=== PATIENT | male | born 1970 | race Two or more races ===

== ENCOUNTER 2019-02-02 06:33 | Emergency (ER) | payer MEDICAID ==
[~2019-02-02] VITALS: Ht 175.3 cm; Wt 70.3 kg
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
[2019-02-02] MEDS ORDERED: MORPHINE SULFATE INJ 2 MG/ML DISP.SYRIN ONE (06:46)
[2019-02-02] MEDS ORDERED: ONDANSETRON HCL/PF 4 MG/2 ML VIAL ONE (06:46)
[2019-02-02] MEDS ORDERED: TDAP [DIPH/PERTUSSIS/TET] 0.5 ML VIAL IM ONE ×2 (07:00→07:04)
[2019-02-02] MEDS ORDERED: ONDANSETRON HCL/PF 4 MG/2 ML VIAL IVP ONE (07:00)
[2019-02-02] MEDS ORDERED: MORPHINE SULFATE INJ 2 MG/ML DISP.SYRIN IV ONE ×3 (07:00→08:30)
[2019-02-02 07:08] LABS: BASOPHILS # (AUTO) 0.1 /CMM (0.0-0.2); BASOPHILS % (AUTO) 1.1 % (0.0-2.0); EOSINOPHILS % (AUTO) 3.6 % (0.0-6.0); HEMATOCRIT 48 % (39-51); HEMOGLOBIN 16.2 g/dL (13.5-17.5); LYMPHOCYTES % (AUTO) 24.8 % (20.0-44.0); MEAN CORPUSCULAR HGB CONC 34 g/dl (31.0-36.0); MEAN CORPUSCULAR VOLUME 91 fL (80-96); MONOCYTES # (AUTO) 0.8 /CMM (0.1-1.30); MONOCYTES % (AUTO) 6.4 % (2.0-12.0); NEUTROPHILS # (AUTO) 7.8 /CMM (1.8-8.9); NEUTROPHILS % (AUTO) 64.1 % (43.0-81.0); PLATELET COUNT (AUTO) 299 /CMM (150-450); RED BLOOD CELL COUNT(AUTO) 5.29 MIL/uL (4.5-6.0); WHITE BLOOD COUNT (AUTO) 12.2 K/uL (4.3-11.0)
--- NOTE | 2019-02-02 07:10 | NUR ---
XRAY AT BEDSIDE
--- NOTE | 2019-02-02 07:17 | NUR ---
REPORT GIVEN TO DAYAMI PINEDA FOR [facility]
[2019-02-02] MEDS ORDERED: MORPHINE SULFATE INJ 4 MG/ML DISP.SYRIN ONE ×2 (07:21→08:17)
--- NOTE | 2019-02-02 07:29 | NUR ---
PATIENT RESTING. SCREAMING IN PAIN, MEDICATION ADMINISTERED.
[2019-02-02] MEDS ORDERED: IV NS 0.9% 250 ML IV ONE (07:41)
[2019-02-02] MEDS ORDERED: CT SWABBABLE VALVE TRANS SET 1 EA INFUS.SET MC ONE (07:42)
[2019-02-02] MEDS ORDERED: IOHEXOL-300 100 ML VIAL IV ONE (07:42)
--- NOTE | 2019-02-02 07:49 | NUR ---
[facility]ED [facility]. WILL CALL BACK WHEN THEY GET A HOLD OF THE DOCTOR.
[2019-02-02 08:15] LABS: ALBUMIN 4.6 g/dL (3.4-5.0); BILIRUBIN,DIRECT 0.1 mg/dL (0.0-0.2); BILIRUBIN,TOTAL 0.4 mg/dL (0.2-1.0); CALCIUM, SERUM 8.9 mg/dL (8.5-10.1); CREATININE 1.2 mg/dL (0.6-1.3); POTASSIUM 3.5 mmol/L (3.5-5.1); TOTAL PROTEIN, SERUM 8.4 g/dL (6.4-8.2)
--- NOTE | 2019-02-02 08:20 | NUR ---
PT WHEELED TO CT SCAN VIA [employer].
[2019-02-02] MEDS ORDERED: PROPOFOL 20 ML IV ONE (08:26)
--- NOTE | 2019-02-02 08:38 | NUR ---
PATIENT TAKEN BACK TO THE ROOM. NO DISTRESS NOTED. VITALS STABLE. ON O2 AT 2LPM VIA NC WITH SPO2 OF 98%.
[2019-02-02] MEDS ORDERED: KETAMINE HCL (500MG/10ML) 50 MG/ML VIAL ONE (08:41)
--- NOTE | 2019-02-02 09:25 | NUR ---
PD AT BEDSIDE, INTERVIEWING THE PATIENT
--- NOTE | 2019-02-02 09:33 | NUR ---
REPORT GIVEN TO ROHITH PINEDA AT [facility].
[2019-02-02] MEDS ORDERED: NALOXONE PREFILLED SYRINGE 2 MG/2 ML SYRINGE ONE (09:42)
--- NOTE | 2019-02-02 09:57 | NUR ---
[employer] ENGINE[employer] AT BEDSIDE FOR XRAY.
[2019-02-02] MEDS ORDERED: PROPOFOL 200 MG/20 ML VIAL IV ONE (10:00)
[2019-02-02] MEDS ORDERED: KETAMINE HCL(200MG/20ML) 10 MG/ML VIAL IV ONE (10:00)
[2019-02-02] MEDS ORDERED: NALOXONE HCL 0.4 MG/ML AMPUL IV ONE (10:00)
--- NOTE | 2019-02-02 10:03 | NUR ---
PATIENT COMPLETED RIGHT HIP REDUCTION PERFORMED BY DR. LEWIS. VITALS STABLE. PATIENT A/OX3, VERBALLY RESPONSIVE, BREATHING EVEN AND UNLABORED, NO SOB NOTED. WILL MONITOR.
--- NOTE | 2019-02-02 10:24 | NUR ---
OFFICER KARINA AT BEDSIDE, WAITING FOR PATIENT TO DECIDE IF HE AGREES TO GET HIS BLOOD DRAWN FOR SERUM ALCOHOL TO BE PROCESSED.
--- NOTE | 2019-02-02 10:40 | NUR ---
PATIENT ALERT AND ORIENTED X4, AWARE OF SITUATION, GAVE VERBAL CONSENT TO HAVE BLOOD TO BE DRAWN FOR OFFICER KARINA. WITNESSED BY 2 NURSES. MITUL PINEDA AND JOSE DYSON RN. MITUL PINEDA JOSIAS BLOOD AND GAVE IT TO OFFICER KARINA.
[2019-02-02 10:52] VITALS: BP 132/78
--- NOTE | 2019-02-02 11:18 | NUR ---
REPORT GIVEN TO PRE BILLING CLINICIAN. PATIENT WILL BE TRANSFERRED TO [facility]. PATIENT IN STABLE CONDITION. VITALS STABLE. PATIENT RECEIVED HIS CELLPHONE FROM [facility].
--- NOTE | 2019-02-02 11:40 | NUR ---
PATIENT LEFT IN STABLE CONDITION.
== END 2019-02-02 11:49 | disposition short-term general hospital (02) ==
LOC: ER 06:38
DX: S32.491A Other specified fracture of right acetabulum, initial encounter for closed fracture (principal); S01.01XA Laceration without foreign body of scalp, initial encounter; S40.811A Abrasion of right upper arm, initial encounter; F10.129 Alcohol abuse with intoxication, unspecified; V49.69XA Unspecified car occupant injured in collision with other motor vehicles in traffic accident, initial encounter; Y93.89 Activity, other specified; Y92.413 State road as the place of occurrence of the external cause; Y99.8 Other external cause status; Y90.7 Blood alcohol level of 200-239 mg/100 ml
CPT/HCPCS: 27222; 36415; 70450; 71045; 72125; 73502 ×2; 80048; 80076; 80307; 85025; 85730; 86850; 90471; 90715; 96374; 96375; 96376; 99152; 99291; A6403; J2270 ×3; J2310; J2405; J2704; J3490; J7030; J7050; L0172; Q9967; G0480; G0500